=== PATIENT | male | born 1965 | race Hispanic/Latino ===

== ENCOUNTER 2017-09-02 10:25 | Inpatient (IN) | payer SELFPAY ==
[~2017-09-02] VITALS: Ht 165.1 cm; Wt 84.1 kg
[~2017-09-02 10:25] MED LIST: ASPIR 8181 MG PO; ATORVASTATIN CA40 MG PO; CILOSTAZOL50 MG PO; CYCLOBENZAPRINE5 MG PO; EFFIENT10 MG PO; GABAPENTIN600 MG PO; GLIMEPIRIDE2 MG PO; HYDROCODON-ACE1 EA11 PO; JENTADUETO 2.51 EAC2 PO; LASIX20 MG PO; METOPROLOL SUCC25 MG PO; POTASSIUM CHLO10 MEQ PO
--- NOTE | 2017-09-02 11:36 | Diagnostic Imaging Report ---
PROCEDURE:X-RAY LEFT FOOT, COMPLETE COMPARISON:None. INDICATIONS:HISTORY OF GANGRENE, LEFT FOOT PAIN FINDINGS: Status post amputation of the fourth ray at the level of the distal metatarsal shaft. No acute, displaced fracture or dislocation. Chronic appearing subluxations of the second and third metatarsophalangeal joints. No gross soft tissue defect or radiopaque foreign body no osseous destructive lesions.Atherosclerotic vascular calcifications. Degenerative plantar calcaneal spur. CONCLUSION: Status post partial fourth ray amputation as above. No cortical erosive change to suggest presence of osteomyelitis. If there is strong clinical concern, MRI of the left foot with and without contrast or 3 phase nuclear medicine bone scan may be obtained for further evaluation. Dictated by: Juan Gurrola M.D. on 09/02/2017 at 11:44 Electronically approved by: Juan Gurrola M.D. on 09/02/2017 at 11:44
[2017-09-02] MEDS ORDERED: SODIUM CHLORIDE 0.9% 1000ML 1,000 ML IV STA (13:07)
[2017-09-02 13:22] LABS: BASOPHILS # (AUTO) 0.1 (0.0-0.1); BASOPHILS % 0.6 % (0.0-1.0); EOSINOPHILS # (AUTO) 0.2 (0.0-0.4); EOSINOPHILS % 1.2 % (0.0-6.0); HEMATOCRIT 43.9 % (38.2-49.6); HEMOGLOBIN 14.8 g/dL (14.0-18.0); LYMPHOCYTES # (AUTO) 2.8 (1.0-3.2); MEAN CORPUSCULAR HGB CONC 33.7 g/dL (31-35); MONOCYTES # (AUTO) 0.9 (0.2-0.8); MONOCYTES % 6.8 % (4.4-11.3); NEUTROPHILS # (AUTO) 8.8 (2.1-6.9); PLATELET COUNT 383 x10e3/uL (140-360); RED BLOOD COUNT 4.93 x10e6/uL (4.3-5.7); RED CELL DISTRIBUTION WIDTH 12.2 % (11.7-14.4)
[2017-09-02 13:34] LABS: INR 0.95; PROTHROMBIN TIME 13.1 seconds (11.9-14.5)
[2017-09-02 13:45] LABS: ALANINE AMINOTRANSFERASE 8 IU/L (0-55); ALBUMIN 3.2 g/dL (3.5-5.0); ALBUMIN/GLOBULIN RATIO 0.6 (0.8-2.0); ALKALINE PHOSPHATASE 108 IU/L (40-150); ANION GAP 14.9 mmol/L (8-16); BLOOD UREA NITROGEN 19 mg/dL (7-26); BUN/CREATININE RATIO 18 (6-25); CALCIUM 9.7 mg/dL (8.4-10.2); CARBON DIOXIDE 25 mmol/L (22-29); CHLORIDE 101 mmol/L (98-107); CREATININE, SERUM 1.05 mg/dL (0.72-1.25); EST GLOMERULAR FILTRATION RATE > 60 ML/MIN (60-); GLUCOSE 201 mg/dL (74-118); POTASSIUM 4.9 mmol/L (3.5-5.1); SODIUM 136 mmol/L (136-145)
--- NOTE | 2017-09-02 14:08 | Diagnostic Imaging Report ---
PROCEDURE: A single AP view of the chest. COMPARISON: None. INDICATIONS: PRE OP. Foot surgery FINDINGS: Lines/tubes: None. Lungs: The lungs are well inflated and clear. There is no evidence of pneumonia or pulmonary edema. Pleura: There is no pleural effusion or pneumothorax. Heart and mediastinum: The heart and the mediastinum are unremarkable. Bones: No acute bony abnormality. IMPRESSION: No acute cardiopulmonary disease. Dictated by: Dashawn Chacon M.D. on 09/02/2017 at 14:16 Electronically approved by: Dashawn Chacon M.D. on 09/02/2017 at 14:16
[2017-09-02] MEDS ORDERED: HEPARIN 25,000U/0.45% NS 250ML 1,300 UNIT in SODIUM CHLORIDE 0.9% 250ML 0 ML IV SCH (15:00)
[2017-09-02] MEDS ORDERED: DEXTROSE 50% SYRINGE 50 ML IV PRN (15:00)
[2017-09-02] MEDS ORDERED: HEPARIN SOD (PORCINE) 5,000 UNIT/ML VIAL IV NR (15:30)
[2017-09-02] MEDS: VANCOMYCIN 1GM/NS 250 ML 250 ML IV SCH (15:59)
[2017-09-02] MEDS: SODIUM CHLORIDE 0.9% 1000ML 1,000 ML IV SCH ×2 (16:51→22:49)
[2017-09-02] MEDS: INSULIN REGULAR, HUMAN 100 UNIT/1 ML 3ML VIAL SQ SCH ×2 (16:51→21:00)
[2017-09-02] MEDS: PIPER-TAZ 3.375 GM 50 ML IV SCH (18:00)
[2017-09-02 18:58] VITALS: BP 169/97
[2017-09-02 19:35] VITALS: BP 169/97
[2017-09-02] MEDS ORDERED: ZESTRIL2.5 MG PO (20:01)
[2017-09-02] MEDS: ONDANSETRON HCL INJ 2 MG/ML VIAL IV PRN (20:41)
[2017-09-02] MEDS: MORPHINE SULFATE 2 MG/ML SYR IV PRN (20:41)
[2017-09-03] VITALS: BP 188/99
[2017-09-03] MEDS: MORPHINE SULFATE 2 MG/ML SYR IV PRN ×3 (01:34→18:35)
[2017-09-03] MEDS: ONDANSETRON HCL INJ 2 MG/ML VIAL IV PRN ×3 (01:35→18:35)
[2017-09-03] MEDS: VANCOMYCIN 1GM/NS 250 ML 250 ML IV SCH ×2 (03:45→16:39)
[2017-09-03 04:00] VITALS: BP 175/78
--- NOTE | 2017-09-03 04:24 | Consultation ---
DATE OF CONSULTATION: September 02, 2017 REASON FOR CONSULTATION: Gangrenous changes of left foot for several months now. HISTORY OF PRESENT ILLNESS: This is a 52-year-old male who was seen at bedside, who has a mha-iikxlvc-gumorrdqp diabetes for at least 25 years. He relates that he had some gangrenous changes approximately several months ago, has been working with gangrene and presented to the emergency room after his foot started getting significantly worse. He is currently denying any history of fever, chills, nausea or vomiting. PAST MEDICAL HISTORY: Remarkable for gpg-rjgwdlw-wzblzzhku diabetes and peripheral arterial disease. PAST SURGICAL HISTORY: Remarkable for stent placement to both lower extremities back in 2013, multiple amputations to both lower extremities including multiple toes. SOCIAL HISTORY: Smokes a half a pack a day for 2+ years. He got 2 years ago. Drinks socially. No recreational drug use. 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 FAMILY HISTORY: Remarkable for diabetes. CURRENT MEDICATIONS: Noted, include IV vancomycin and Zosyn. REVIEW OF SYSTEMS CARDIAC: Denies any palpitations or arrhythmias. RESPIRATORY: Denies any shortness of breath, productive cough. GASTROINTESTINAL: Denies any diarrhea or constipation. GENITOURINARY: Denies any problems with voiding. PHYSICAL EXAMINATION VITALS: Afebrile, pulse rate 86, respirations 14, blood pressure 168/90, and O2 saturation 99%. PODIATRIC PHYSICAL EXAMINATION VASCULAR: Pedal pulses in both the dorsalis pedis and posterior tibial arteries in both lower extremities are diminished. Skin temperature is warm to cool to touch. NEUROLOGICAL: Reveals complete loss of protective sensation when utilizing Elizabeth-Yony 5.07 monofilament wire. Muscle mass is symmetrical. Muscle strength is 3-4/5 to all muscle groups. DERMATOLOGICAL: Shows gangrenous changes to the lateral aspect of the right foot. Some foul smell present. LABS: White blood cell count of 12.71, hemoglobin 14.8, hematocrit 43.9, with a platelet count of 383,000. INR of 0.95. X-rays were negative for any gas in the tissue. ASSESSMENT: Gangrene with cellulitis with peripheral arterial disease. PLAN: Will start diluted wet to dry Betadine dressing. Patient will need a surgical amputation, will consist of possible transmetatarsal amputation with flap closure and I and D. Noninvasive arterial Doppler studies were ordered. Will continue to follow. Job#: [id number] GE
[2017-09-03] MEDS: PIPER-TAZ 3.375 GM 50 ML IV SCH ×4 (06:00→17:27)
[2017-09-03 07:17] LABS: ANION GAP 12.5 mmol/L (8-16); BLOOD UREA NITROGEN 13 mg/dL (7-26); BUN/CREATININE RATIO 14 (6-25); CARBON DIOXIDE 27 mmol/L (22-29); CHLORIDE 104 mmol/L (98-107); CHOL/HDL RATIO 7.1 (3.9-4.7); CHOLESTEROL 192 MD/DL (0-199); CREATININE, SERUM 0.94 mg/dL (0.72-1.25); EST GLOMERULAR FILTRATION RATE > 60 ML/MIN (60-); GLUCOSE 122 mg/dL (74-118); HDL CHOLESTEROL 27 MG/DL (40-60); LDL CHOLESTEROL 130 MG/DL (60-130); POTASSIUM 3.5 mmol/L (3.5-5.1); SODIUM 140 mmol/L (136-145); TRIGLYCERIDES 174 MG/DL (0-149)
[2017-09-03] MEDS: INSULIN REGULAR, HUMAN 100 UNIT/1 ML 3ML VIAL SQ SCH ×4 (07:30→21:00)
[2017-09-03 07:56] LABS: BASOPHILS # (AUTO) 0.1 (0.0-0.1); BASOPHILS % 0.6 % (0.0-1.0); EOSINOPHILS # (AUTO) 0.2 (0.0-0.4); EOSINOPHILS % 1.7 % (0.0-6.0); HEMOGLOBIN 13.6 g/dL (14.0-18.0); LYMPHOCYTES # (AUTO) 3.1 (1.0-3.2); LYMPHOCYTES % 31.8 % (18.0-39.1); MEAN CORPUSCULAR HGB CONC 33.2 g/dL (31-35); MEAN CORPUSCULAR VOLUME 90.3 fL (81-99); MONOCYTES # (AUTO) 0.6 (0.2-0.8); MONOCYTES % 6.1 % (4.4-11.3); NEUTROPHILS # (AUTO) 5.8 (2.1-6.9); NEUTROPHILS % 59.4 % (38.7-80.0); PLATELET COUNT 405 x10e3/uL (140-360); RED BLOOD COUNT 4.54 x10e6/uL (4.3-5.7); RED CELL DISTRIBUTION WIDTH 12.2 % (11.7-14.4)
[2017-09-03 08:00] VITALS: BP 180/99
[2017-09-03] MEDS: SODIUM CHLORIDE 0.9% 1000ML 1,000 ML IV SCH ×2 (08:00→14:49)
[2017-09-03] MEDS ORDERED: HEPARIN 25,000U/0.45% NS 250ML 250 ML IV SCH (09:30)
[2017-09-03 12:00] VITALS: BP 168/92
[2017-09-03 16:00] VITALS: BP 159/93
[2017-09-03] MEDS ORDERED: PROPOFOL IV EMULSION 10 MG/ML 20 ML VIAL ONE (17:01)
[2017-09-03] MEDS ORDERED: LIDOCAINE HCL 2% LOCAL INJ 5 ML SDV VIAL INJ ONE (17:01)
[2017-09-03] MEDS ORDERED: DEXAMETHASONE SOD PHOS INJ 4 MG/ML VIAL ONE (17:01)
[2017-09-03] MEDS ORDERED: SEVOFLURANE INHAL SOLN 250 ML PEN BTL ONE (17:01)
[2017-09-03] MEDS ORDERED: ONDANSETRON HCL INJ 2 MG/ML VIAL ONE (17:01)
[2017-09-03 18:43] LABS: INR 0.95; PROTHROMBIN TIME 13.1 seconds (11.9-14.5)
[2017-09-03 20:00] VITALS: BP 139/82
[2017-09-03] MEDS: HYDROCODONE/APAP 7.5MG-325MG 1 EA TAB PO PRN (21:38)
--- NOTE | 2017-09-03 23:30 | History and Physical ---
PCP: PRINTING MACHINIST: Dr. Srinath Peerz CHIEF COMPLAINT ON ADMISSION: Patient came into the emergency room with left leg pain. HISTORY OF PRESENTING ILLNESS: This is a 52-year-old male that comes into the emergency room complaining of left leg pain with fifth toe dry gangrene and second toe dry gangrene as well. The patient reported some neuropathy to left leg. Patient reports he has had previous amputation to the right great toe and as well as to the second right toe due to a fracture in the right great toe versus osteomyelitis several years ago in 2015. Patient reported he was seen in the emergency room about 3 weeks ago at [facility] and had a Doppler done of the left leg and was discharged from the emergency room. SOCIAL HISTORY: Patient reported he stopped smoking about 2 days ago. He used to smoke about 3/4 a pack for 2 years. Denies any alcohol, denies any recreational drugs. FAMILY HISTORY: Mom with anemia. Father with diabetes mellitus type 2 and of congestive heart failure. Has a sister with diabetes mellitus type 2 as well. PAST MEDICAL HISTORY: Diabetes mellitus type 2, hypertension, and peripheral vascular disease as well. REVIEW OF SYSTEMS: All systems negative and reviewed except in neurology reported neuropathy to left leg. Skin, has dry gangrene to the second and fifth left toes. PHYSICAL EXAMINATION: VITAL SIGNS: 97.6, pulse 74, blood pressure 175/78, respirations 18, satting 95% on room air. Weight 174. GENERAL: Patient is awake, alert, and oriented x3. LUNGS: Clear to auscultation bilaterally with normal respiratory effort. HEENT: Extraocular muscles are intact. Anicteric sclerae. ABDOMEN: Soft. Bowel sounds present. It is nontender, nondistended. CARDIOVASCULAR: Regular rate and rhythm. No murmurs appreciated. NECK: Supple. EXTREMITIES: Left foot wrapped with dressing that is clean, dry, and intact, but has a foul smell of gangrene. NEUROLOGICAL: Nonfocal. LABS: Sodium 140, potassium 3.5, chloride 104, CO2 27, BUN 13, creatinine 0.94, glucose 122. White count 9.76, hemoglobin 13.6, hematocrit 41, platelets 405,000. PT 13.1, PTT 53.0, INR 0.95. AST 7, total bili 0.4, alkaline phos 108, ALT 8. DIAGNOSES: 1. Left leg fifth toe with dry gangrene, left second toe with dry gangrene. 2. Neuropathy. 3. Diabetes mellitus type 2. 4. Hypertension. 5. Peripheral vascular disease. PLAN: 1. Patient is to have incision and drainage of the left foot metatarsal by Dr. Perez. Will go ahead and stop the heparin drip for now due to surgical procedure tomorrow. 2. Will place patient on a sliding scale. 3. Will continue IV antibiotics of vancomycin as well as Zosyn. 4. Will continue with pain medication. Dictated by Luis Daniel Brantley NP Job#: [id number]
[2017-09-04] VITALS: BP 164/81
[2017-09-04] MEDS: SODIUM CHLORIDE 0.9% 1000ML 1,000 ML IV SCH ×4 (00:45→21:53)
[2017-09-04] MEDS: PIPER-TAZ 3.375 GM 50 ML IV SCH ×4 (00:45→17:44)
[2017-09-04] MEDS: HYDROCODONE/APAP 7.5MG-325MG 1 EA TAB PO PRN ×3 (01:38→20:20)
[2017-09-04 02:33] VITALS: BP 164/81
[2017-09-04 04:00] VITALS: BP 157/74
[2017-09-04] MEDS: VANCOMYCIN 1GM/NS 250 ML 250 ML IV SCH ×2 (04:50→16:11)
[2017-09-04 07:08] LABS: BASOPHILS # (AUTO) 0.1 (0.0-0.1); BASOPHILS % 0.6 % (0.0-1.0); EOSINOPHILS # (AUTO) 0.2 (0.0-0.4); EOSINOPHILS % 2.4 % (0.0-6.0); HEMATOCRIT 37.3 % (38.2-49.6); HEMOGLOBIN 12.6 g/dL (14.0-18.0); LYMPHOCYTES # (AUTO) 2.4 (1.0-3.2); LYMPHOCYTES % 24.2 % (18.0-39.1); MEAN CORPUSCULAR HEMOGLOBIN 30.2 pg (28-32); MEAN CORPUSCULAR HGB CONC 33.8 g/dL (31-35); MEAN CORPUSCULAR VOLUME 89.4 fL (81-99); MONOCYTES # (AUTO) 0.8 (0.2-0.8); MONOCYTES % 8.1 % (4.4-11.3); NEUTROPHILS # (AUTO) 6.5 (2.1-6.9); NEUTROPHILS % 64.4 % (38.7-80.0); PLATELET COUNT 345 x10e3/uL (140-360); RED BLOOD COUNT 4.17 x10e6/uL (4.3-5.7); RED CELL DISTRIBUTION WIDTH 12.2 % (11.7-14.4)
[2017-09-04 07:25] LABS: PROTHROMBIN TIME 13.7 seconds (11.9-14.5)
[2017-09-04 07:26] LABS: PARTIAL THROMBOPLASTIN TIME 31.5 seconds (23.8-35.5)
[2017-09-04] MEDS: INSULIN REGULAR, HUMAN 100 UNIT/1 ML 3ML VIAL SQ SCH ×4 (07:30→20:50)
[2017-09-04] MEDS ORDERED: BUPIVACAINE HCL 0.5% INJ 30 ML VIAL INJ ONE (07:34)
[2017-09-04] MEDS ORDERED: BETAMETHASONE DISODIUM PHOS 6 MG/ML VIAL ONE (07:34)
[2017-09-04] MEDS ORDERED: BACITRACIN 50,000 UNIT VIAL ONE (07:34)
[2017-09-04] MEDS ORDERED: HYDROCODONE/APAP 5MG-325MG TAB PO PRN (09:45)
[2017-09-04] MEDS ORDERED: HYDRALAZINE HCL 20 MG/ML VIAL IV PRN (09:45)
--- NOTE | 2017-09-04 11:02 | Operative Report ---
DATE OF PROCEDURE: September 04, 2017 PREOPERATIVE DIAGNOSES 1. Abscess, left foot. 2. Gangrene, left foot. POSTOPERATIVE DIAGNOSES 1. Abscess, left foot. 2. Gangrene, left foot. OPERATIVE PROCEDURE 1. I and D of abscess, left foot. 2. Transmetatarsal amputation, left foot. 3. Rotational flap closure, left foot. ANESTHESIA: General. HEMOSTASIS: Pneumatic calf tourniquet at 250 mm Hg. PROCEDURE IN DETAIL: Patient was taken into the operating room, placed on the operating table in the supine position. Following induction of general anesthesia, Webril wraps were placed on the patient's left calf, followed by application of left calf tourniquet. The left lower extremity was then prepped and draped in the usual aseptic manner and the following procedures then performed. Procedure #1, I and D, left foot: Attention was directed to the dorsal lateral aspect of the 5th metatarsal tuberosity, where a curvilinear incision was performed. Purulent drainage was encountered. At this point, secondary to the severe infection, a racquet-shaped incision was performed overlying the metatarsal parabola, performing a transmetatarsal amputation. The viable tissue was then resected free from metatarsals 1 through 5, preserving the metatarsal parabola, utilizing an oscillating saw. The forefoot was then disarticulated and sent for pathological analysis. All areas were then copiously flushed with sterile antibiotic solution and suctioned. At this point, the calf tourniquet was released and some minimal bleeding was encountered. Areas were then copiously flushed with sterile antibiotic solution. The plantar flap was then rotated dorsolaterally and remodeled to allow for closure with minimal skin tension, utilizing 3-0 Vicryl for subcutaneous tissue and 3-0 nylon for the skin. Approximately 15-20 mL of 0.5% plain Marcaine were then used to achieve local anesthesia of the above-mentioned surgical area. Sterile dressing was applied and patient was then transferred from the OR to recovery room with vital signs stable. Patient will remain in the hospital getting IV antibiotics. Vascular consultation will be obtained to see if patient could have any more blood flow going to his left lower extremity. Patient understands that no warranties or guarantees were given. If not responsive, may need a more proximal amputation, which may include a drnte-eav-luyi amputation. Job#: [id number] IL
--- NOTE | 2017-09-04 11:04 | Diagnostic Imaging Report ---
PROCEDURE:X-RAY LEFT FOOT, TWO VIEWS COMPARISON:Left foot x-rays 09/02/17. INDICATIONS:FOOT AMPUTATION FINDINGS: The forefoot has been amputated at the proximal metatarsals. There is periosteal new bone formation surrounding the base of the fourth metatarsal. The osteotomy margin is sharp, however. The osteotomy margins of digits 1, 2, 3, and 5 are sharp without evidence of osteopenia. Degenerative changes of the midfoot at the third metatarsal are stable. There is no evidence of midfoot fracture. Prominent calcaneal enthesophyte is stable. The hindfoot is intact. There is no evidence of gas in the soft tissues. Arterial calcifications are stable. CONCLUSION: Status post forefoot amputation with periosteal new bone formation surrounding the proximal phalanx of the fourth metatarsal. This could be the result of a healing fracture or osteomyelitis. Correlation with clinical exam findings is recommended. Dictated by: Oirn Colvin M.D. on 09/04/2017 at 11:12 Electronically approved by: Orin Colvin M.D. on 09/04/2017 at 11:12
[2017-09-04 12:00] VITALS: BP 148/84
[2017-09-04] MEDS: CYCLOBENZAPRINE HCL 10 MG TAB PO SCH ×2 (15:00→21:00)
[2017-09-04] MEDS ORDERED: NON-FORMULARY MEDICATION (Cyclobenzaprine Hcl (Flexeril) 5 MG) PO SCH (15:00)
[2017-09-04 16:00] VITALS: BP 126/75
[2017-09-04] MEDS: GLIMEPIRIDE 2 MG TAB PO SCH (16:28)
[2017-09-04] MEDS: CILOSTAZOL 100 MG TAB PO SCH (16:29)
[2017-09-04] MEDS: GABAPENTIN 300 MG CAP PO SCH (16:29)
[2017-09-04] MEDS ORDERED: NON-FORMULARY MEDICATION (Gabapentin 600 MG) PO SCH (17:00)
[2017-09-04] MEDS ORDERED: MIDAZOLAM HCL 2 MG/2 ML VIAL ONE (18:32)
[2017-09-04] MEDS ORDERED: FENTANYL CITRATE/PF 100MCG/2 ML INJ ONE (18:32)
--- NOTE | 2017-09-04 19:36 | Consultation ---
DATE OF CONSULTATION: September 04, 2017 REQUESTING PHYSICIAN: Dr. David Jovel. REASON FOR CONSULTATION: Peripheral arterial disease. HISTORY OF PRESENT ILLNESS: This is a 52-year-old male with history of diabetes mellitus, hyperlipidemia and peripheral arterial disease, status post lower extremity stents bilaterally who presented with gangrene of the left 2nd and 5th toes. He was admitted for further evaluation and underwent I\T\D of the left foot abscess as well as transmetatarsal amputation today. Cardiology is consulted for management of the patient's peripheral arterial disease. The patient denies chest pain, shortness of breath, palpitations, edema, orthopnea, PND, lightheadedness or syncope. REVIEW OF SYSTEMS: Negative except as per HPI. PAST MEDICAL HISTORY: 1. Diabetes mellitus. 2. Hypertension. 3. Peripheral arterial disease, status post lower extremity stents bilaterally. PAST SURGICAL HISTORY: 1. Toe amputation on the right. 2. Cataract surgery. ALLERGIES: NO KNOWN DRUG ALLERGIES. MEDICATIONS: Please see medication list. SOCIAL HISTORY: He smokes approximately 3/4 of a pack a day for 7 years. He drinks alcohol occasionally. Denies illicit drugs. FAMILY HISTORY: Pertinent for father with congestive heart failure. PHYSICAL EXAMINATION VITAL SIGNS: Temperature 98.2 degrees, pulse 89, respiratory rate 18, blood pressure 148/84, oxygen saturation 99% on room air. GENERAL: Awake, alert, well-nourished, well-developed man in no acute distress. HEENT: Normocephalic, atraumatic. Pupils are equal. No scleral icterus. NECK: Supple. No thyromegaly or cervical lymphadenopathy. No carotid bruits. LUNGS: Clear to auscultation bilaterally. No wheezes or crackles. CARDIOVASCULAR: Normal rate, regular rhythm. No murmurs. Normal S1 and S2. ABDOMEN: Soft and nontender. EXTREMITIES: No edema. The left foot with surgical dressing intact. NEUROLOGIC: Nonfocal exam. CARDIAC MEDICATIONS: 1. 50 mg p.o. b.i.d. 2. Atorvastatin 40 mg p.o. nightly. 3. 10 mg p.o. daily. 4. Metoprolol succinate 25 mg p.o. daily. 5. Lisinopril 2.5 mg p.o. daily. 6. Furosemide 20 mg p.o. daily. 7. Aspirin 81 mg p.o. daily. LABORATORY DATA: WBC 10.04, hemoglobin 12.6, hematocrit 37.3, platelets 345,000. Bilateral lower extremity Doppler with monophasic waveforms in the distal right popliteal, anterior tibial and dorsalis pedis arteries suggestive of infrapopliteal peripheral arterial disease. Monophasic waveforms in the left femoral popliteal, posterior tibial, anterior tibial and dorsalis pedis arteries suggest the presence of hemodynamically significant stenosis proximally. IMPRESSION 1. Peripheral arterial disease suggested by noninvasive Doppler evaluation, left worse than right, left foot. 2. Abscess, status post transmetatarsal amputation. 3. Diabetes mellitus. 4. Hyperlipidemia. RECOMMENDATIONS: Make the patient n.p.o. after midnight. Plan for peripheral angiogram in the morning. IV antibiotics per primary service. The patient was counseled on smoking cessation. Thank you for this consult. We will continue to follow. Job#: [id number]
[2017-09-04 20:10] VITALS: BP 119/58
[2017-09-04] MEDS: ATORVASTATIN 40 MG TAB PO SCH (20:49)
[2017-09-05] VITALS (9 sets, daily range): BP systolic 102–171; BP diastolic 56–84
[2017-09-05] MEDS: PIPER-TAZ 3.375 GM 50 ML IV SCH ×4 (00:48→17:00)
[2017-09-05] MEDS: HYDROCODONE/APAP 7.5MG-325MG 1 EA TAB PO PRN ×4 (03:06→23:00)
[2017-09-05] MEDS: VANCOMYCIN 1GM/NS 250 ML 250 ML IV SCH ×2 (04:44→18:07)
[2017-09-05 07:14] LABS: BASOPHILS # (AUTO) 0.1 (0.0-0.1); BASOPHILS % 0.6 % (0.0-1.0); EOSINOPHILS # (AUTO) 0.1 (0.0-0.4); EOSINOPHILS % 1.4 % (0.0-6.0); HEMATOCRIT 37.6 % (38.2-49.6); HEMOGLOBIN 12.5 g/dL (14.0-18.0); LYMPHOCYTES # (AUTO) 2.4 (1.0-3.2); LYMPHOCYTES % 27.4 % (18.0-39.1); MEAN CORPUSCULAR HEMOGLOBIN 29.9 pg (28-32); MEAN CORPUSCULAR HGB CONC 33.2 g/dL (31-35); MONOCYTES # (AUTO) 0.6 (0.2-0.8); MONOCYTES % 7.3 % (4.4-11.3); NEUTROPHILS # (AUTO) 5.5 (2.1-6.9); NEUTROPHILS % 62.8 % (38.7-80.0); PLATELET COUNT 348 x10e3/uL (140-360); RED BLOOD COUNT 4.18 x10e6/uL (4.3-5.7); RED CELL DISTRIBUTION WIDTH 12.2 % (11.7-14.4)
[2017-09-05] MEDS: INSULIN REGULAR, HUMAN 100 UNIT/1 ML 3ML VIAL SQ SCH ×4 (07:30→21:00)
[2017-09-05 07:35] LABS: ANION GAP 15.6 mmol/L (8-16); BLOOD UREA NITROGEN 13 mg/dL (7-26); BUN/CREATININE RATIO 14 (6-25); CALCIUM 8.8 mg/dL (8.4-10.2); CARBON DIOXIDE 23 mmol/L (22-29); CHLORIDE 106 mmol/L (98-107); EST GLOMERULAR FILTRATION RATE > 60 ML/MIN (60-); GLUCOSE 107 mg/dL (74-118); POTASSIUM 3.6 mmol/L (3.5-5.1); SODIUM 141 mmol/L (136-145)
[2017-09-05] MEDS: GLIMEPIRIDE 2 MG TAB PO SCH ×2 (08:47→16:25)
[2017-09-05] MEDS: CYCLOBENZAPRINE HCL 10 MG TAB PO SCH ×4 (08:47→21:00)
[2017-09-05] MEDS: GABAPENTIN 300 MG CAP PO SCH ×2 (08:48→16:25)
[2017-09-05] MEDS: CILOSTAZOL 100 MG TAB PO SCH ×2 (08:48→16:25)
[2017-09-05] MEDS ORDERED: NON-FORMULARY MEDICATION (Atorvastatin Calcium 40 MG) PO SCH (09:00)
[2017-09-05] MEDS: ASPIRIN 81 MG CHEW TAB PO SCH (09:00)
[2017-09-05] MEDS ORDERED: LIDOCAINE HCL 2% LOCAL 20 ML VIAL ONE (09:39)
[2017-09-05] MEDS ORDERED: HEPARIN SOD/SOD CHLORIDE 2,000 ML ONE (09:40)
[2017-09-05] MEDS ORDERED: IOPAMIDOL 370 MG/ML 200 ML INFUS..BTL INJ ONE (09:40)
--- NOTE | 2017-09-05 09:45 | Progress Note ---
DATE: September 05, 2017 SUBJECTIVE: Patient was seen at bedside. Doing well. Decreased pain to the left lower extremity. Denies history of fever, chills, nausea, or vomiting. OBJECTIVE VITAL SIGNS: Afebrile. Vital signs stable. EXTREMITIES: Dressing dry and intact. No bloody strikethrough. ASSESSMENT: Status post one day left foot surgery/incision and drainage of transmetatarsal amputation and flap closure with minimal bleeding. PLAN: Patient is waiting to have an arteriogram done for possible angioplasty, stenting or bypassing. Patient informed of intraoperative findings. Minimal bleeding was encountered. Patient will need better circulation for flap to heal. Job#: [id number] BROCK
[2017-09-05] MEDS ORDERED: IOPAMIDOL 300MG/ML 100 ML INFUS..BTL IV ONE (09:49)
[2017-09-05] MEDS: SODIUM CHLORIDE 0.9% 1000ML 1,000 ML IV SCH ×2 (11:20→14:12)
[2017-09-05] MEDS ORDERED: ASPIRIN 325 MG TAB ONE (15:35)
[2017-09-05] MEDS ORDERED: PRASUGREL 10 MG TAB ONE (15:35)
[2017-09-05] MEDS ORDERED: HYDRALAZINE HCL 20 MG/ML VIAL ONE (15:39)
[2017-09-05] MEDS: POTASSIUM CHLORIDE 10 MEQ TABCR PO SCH (16:23)
[2017-09-05] MEDS: PRASUGREL 10 MG TAB PO SCH (16:23)
[2017-09-05] MEDS: FUROSEMIDE 20 MG TAB PO SCH (16:23)
[2017-09-05] MEDS: LISINOPRIL 2.5 MG TAB PO SCH (16:23)
[2017-09-05] MEDS: METOPROLOL SUCCINATE 25 MG TAB XL PO SCH (16:24)
[2017-09-05] MEDS: ATORVASTATIN 40 MG TAB PO SCH (21:00)
[2017-09-06] VITALS (7 sets, daily range): BP systolic 93–153; BP diastolic 58–87
[2017-09-06] MEDS: VANCOMYCIN 1GM/NS 250 ML 250 ML IV SCH ×2 (04:00→18:15)
[2017-09-06] MEDS: HYDROCODONE/APAP 7.5MG-325MG 1 EA TAB PO PRN ×5 (05:02→21:58)
[2017-09-06] MEDS: PIPER-TAZ 3.375 GM 50 ML IV SCH ×4 (06:00→17:32)
--- NOTE | 2017-09-06 06:42 | Progress Note ---
DATE: September 05, 2017 CARDIOLOGY PROGRESS NOTE SUBJECTIVE: Underwent a left popliteal drug-coated balloon CLIENT ADVISOR with judaism of popliteal flow down to the foot. Has poor outflow due to small vessel disease. Denies any active complaints. OBJECTIVE VITALS: Temperature 96.1, heart rate 89, respiratory rate 18, blood pressure 171/84, and O2 sat 100%. GENERAL: No acute distress. Alert. NECK: No JVD. CHEST: Clear to auscultation. CARDIOVASCULAR: Regular rate and rhythm. Normal S1 and S2. No S3 or S4. ABDOMEN: Soft. EXTREMITIES: No edema. Left foot with surgical dressing in place. CARDIOVASCULAR MEDICATIONS 1. Aspirin 81 mg daily. 2. Effient 10 mg daily, status post 60 mg load after revascularization today. 3. Atorvastatin 40 mg at bedtime. 4. 30 mg b.i.d. 5. Metoprolol succinate 25 mg daily. 6. Lisinopril 2.5 mg daily. 7. Furosemide 20 mg daily. 8. Hydralazine 10 mg q.4 h. p.r.n. STUDIES: White blood cells 8.7, hemoglobin 12.5 and platelets 348,000. Creatinine 0.9. ASSESSMENT 1. Peripheral arterial disease with critical limb ischemia: Status post left superficial femoral artery and right popliteal drug-eluting balloon percutaneous transluminal angioplasty for occlusion of prior stent with poor residual outflow at small vessel level. 2. Abscess: Status post transmetatarsal amputation and drainage. 3. Diabetes mellitus. 4. Dyslipidemia. RECOMMENDATIONS 1. Continue antiplatelet therapy. 2. Continue wound care and IV antibiotics. 3. DVT prophylaxis advised starting tomorrow if no bleeding occurs. 4. Antibiotics per primary service. 5. Diabetes care. 6. Further recommendations to follow. Job#: [id number] ID
[2017-09-06] MEDS: INSULIN REGULAR, HUMAN 100 UNIT/1 ML 3ML VIAL SQ SCH ×4 (07:30→20:22)
[2017-09-06] MEDS: FUROSEMIDE 20 MG TAB PO SCH (08:23)
[2017-09-06] MEDS: LISINOPRIL 2.5 MG TAB PO SCH (08:23)
[2017-09-06] MEDS: GABAPENTIN 300 MG CAP PO SCH ×2 (08:23→17:32)
[2017-09-06] MEDS: ASPIRIN 81 MG CHEW TAB PO SCH (08:23)
[2017-09-06] MEDS: CILOSTAZOL 100 MG TAB PO SCH ×2 (08:23→17:32)
[2017-09-06] MEDS: PRASUGREL 10 MG TAB PO SCH (08:23)
[2017-09-06] MEDS: CYCLOBENZAPRINE HCL 10 MG TAB PO SCH ×3 (08:23→20:22)
[2017-09-06] MEDS: POTASSIUM CHLORIDE 10 MEQ TABCR PO SCH (08:23)
[2017-09-06] MEDS: GLIMEPIRIDE 2 MG TAB PO SCH ×2 (08:23→17:32)
[2017-09-06] MEDS: METOPROLOL SUCCINATE 25 MG TAB XL PO SCH (08:24)
[2017-09-06 08:27] LABS: BASOPHILS # (AUTO) 0.1 (0.0-0.1); BASOPHILS % 0.7 % (0.0-1.0); EOSINOPHILS # (AUTO) 0.1 (0.0-0.4); EOSINOPHILS % 0.9 % (0.0-6.0); HEMATOCRIT 35.6 % (38.2-49.6); HEMOGLOBIN 11.6 g/dL (14.0-18.0); LYMPHOCYTES # (AUTO) 2.1 (1.0-3.2); LYMPHOCYTES % 19.8 % (18.0-39.1); MEAN CORPUSCULAR HEMOGLOBIN 29.3 pg (28-32); MEAN CORPUSCULAR HGB CONC 32.6 g/dL (31-35); MEAN CORPUSCULAR VOLUME 89.9 fL (81-99); MONOCYTES # (AUTO) 0.9 (0.2-0.8); NEUTROPHILS # (AUTO) 7.2 (2.1-6.9); NEUTROPHILS % 69.3 % (38.7-80.0); PLATELET COUNT 352 x10e3/uL (140-360); RED BLOOD COUNT 3.96 x10e6/uL (4.3-5.7); RED CELL DISTRIBUTION WIDTH 12.4 % (11.7-14.4)
[2017-09-06 08:59] LABS: ANION GAP 13.9 mmol/L (8-16); BLOOD UREA NITROGEN 11 mg/dL (7-26); BUN/CREATININE RATIO 11 (6-25); CALCIUM 8.8 mg/dL (8.4-10.2); CARBON DIOXIDE 24 mmol/L (22-29); CHLORIDE 104 mmol/L (98-107); CREATININE, SERUM 0.97 mg/dL (0.72-1.25); EST GLOMERULAR FILTRATION RATE > 60 ML/MIN (60-); GLUCOSE 126 mg/dL (74-118); POTASSIUM 3.9 mmol/L (3.5-5.1); SODIUM 138 mmol/L (136-145)
--- NOTE | 2017-09-06 10:01 | Operative Report ---
DATE OF PROCEDURE: September 05, 2017 REFERRING PHYSICIAN: Dr. David Jovel. PROCEDURES PERFORMED 1. Abdominal aortogram with runoff to the right lower extremity. 2. Selective lower extremity angiography to the left lower extremity. 3. Third-order catheter placement from right common femoral artery to left common femoral artery for additional angiography. 4. Additional third-order catheter placement from right common femoral artery to left popliteal artery for additional selective angiography [id number] vessels initially not well visualized. 5. Drug-eluting balloon CHANNEL PROCESS PLANT OPERATOR of the distal left SFA and proximal to mid left popliteal artery in the area of previously occluded stents. 6. Right common femoral artery 6-Croatian Angio-Seal closure. PROCEDURE COMPLICATIONS: None. ESTIMATED BLOOD LOSS: Less than 15 mL. PROCEDURE SUMMARY: This procedure was performed for critical limb ischemia, limb salvage. Access was obtained to the right femoral artery with a 6-Croatian sheath. An Omni Flush catheter was positioned through the abdominal aorta for aortogram with runoff. Selective lower extremity angiography of the left lower extremity was then performed after sheath placement to the left common femoral artery. An Advantage wire was used across the area of stenosis with J loop at the tip and advanced carefully with Seeker catheter. The wire was then retrieved and angiography via the left popliteal artery was performed confirming anatomy of the left lower extremity. It was decided to proceed with intervention of left distal femoral artery to proximal left popliteal in-stent occlusion 100% with 3.5 x 100 Ultraverse balloon after wire exchange to KellBenxm wire with fixed position to the left anterior tibial artery, exchanged over the Seeker catheter. Inflation to 8 atmospheres serially across the target lesion was followed by drug-eluting balloon angioplasty with Lutonix 4.0 x 150 drug-eluting balloon to treat the mid to distal portion of the stent and the partial to mid left popliteal artery in the areas of stenosis, and an additional 5.0 x 160 Lutonix drug-eluting balloon to treat the area proximal to the stent in the left SFA and across the area of the stent. Balloon inflations with Lutonix balloons were to 12 atmospheres and over 2 minutes each. Final angiography revealed less than 10% residual stenosis across the treated area, JULIO III flow. No flow limiting dissections, however, and small non-flow limiting dissection noted in the mid left popliteal artery, and so we decided to leave with no additional therapy even if location in the popliteal level and lack of flow limitation. Discussion with the patient about consideration of stent issues occurred down the line in this area were discussed post procedure. There is 3-vessel runoff down to the left lower extremity. However, the vessels overall are diffusely diseased throughout, mainly the TP trunk, peroneal and posterior tibial arteries as well as severe diabetic small foot disease and poor outflow noted to the left foot. This was also discussed with the patient. Overall, great angiographic results. ANGIOGRAPHIC FINDINGS: The distal descending abdominal aorta has luminal irregularities and the right common iliac artery has patent stent, which was noted to be unchanged in position or structure at the end of the procedure. The rest of the iliac arteries, profunda femoris, common femoral arteries and luminal irregularities, the right SFA and popliteal arteries have less than 30% stenosis. There is a patent right anterior tibial with 70% distal stenosis, which is focal, and there is diffuse, at least 60% to 70% disease of the right TP trunk, right peroneal artery and right posterior tibial artery throughout with small vessel disease at the foot level of both lower extremities. The left SFA has, in the distal segment, stent with 70% stenosis in the proximal misael-stent area, 95% stenosis in the proximal to mid stent area [id number]% occlusion of the distal stent area and with 60% to 70% stenosis of the proximal to mid popliteal artery with distal filling the collaterals. The left anterior tibial is 60% diseased in the proximal segment. The TP trunk is diffusely diseased 50% and peroneal and posterior tibial arteries have diffuse 60% to 70% disease and overall are small in caliber throughout with poor outflow and small vessel disease at the foot level. CONCLUSION: Successful revascularization with drug-eluting balloon of the left distal superficial femoral artery and proximal to mid popliteal artery in the area of prior stent occlusion, follow residual [id number]-[id number] dissection in the left popliteal artery. RECOMMENDATIONS: Aspirin 81 mg daily, Effient 10 mg daily. Continue aggressive wound care. antibiotics and management of peripheral arterial disease for limb salvage. Overall, guarded foot prognosis. Job#: [id number]
--- NOTE | 2017-09-06 11:36 | Progress Note ---
DATE: September 06, 2017 CARDIOLOGY PROGRESS NOTE: SUBJECTIVE: Mr. Rebollar is status post intervention on his left lower extremity with angioplasty of the left femoral artery. OBJECTIVE VITAL SIGNS: Afebrile. Heart rate is 85. Blood pressure 145/73. CARDIOVASCULAR: Regular rhythm. No murmurs or gallops. LUNGS: Clear to auscultation bilaterally. ABDOMEN: Soft. RIGHT GROIN: Is without hematoma. ASSESSMENT: Peripheral arterial disease with critical limb ischemia status post intervention. PLAN: Dual antiplatelet therapy. Continue local wound care as well as IV antibiotics. The patient has severe infrapopliteal disease that is not amenable to intervention. Job#: [id number] EV
[2017-09-06] MEDS: ENOXAPARIN SOD INJ 40 MG/0.4 ML SYR SC SCH (17:32)
[2017-09-06] MEDS: ATORVASTATIN 40 MG TAB PO SCH (20:22)
[2017-09-07] VITALS (9 sets, daily range): BP systolic 104–143; BP diastolic 66–69
[2017-09-07] MEDS: PIPER-TAZ 3.375 GM 50 ML IV SCH ×5 (00:06→23:24)
[2017-09-07] MEDS: VANCOMYCIN 1GM/NS 250 ML 250 ML IV SCH ×2 (03:28→16:15)
[2017-09-07] MEDS: HYDROCODONE/APAP 7.5MG-325MG 1 EA TAB PO PRN ×4 (03:28→22:19)
[2017-09-07] MEDS: INSULIN REGULAR, HUMAN 100 UNIT/1 ML 3ML VIAL SQ SCH ×4 (07:30→21:00)
[2017-09-07] MEDS: CYCLOBENZAPRINE HCL 10 MG TAB PO SCH ×3 (08:28→20:56)
[2017-09-07] MEDS: LISINOPRIL 2.5 MG TAB PO SCH (08:28)
[2017-09-07] MEDS: CILOSTAZOL 100 MG TAB PO SCH ×2 (08:28→16:19)
[2017-09-07] MEDS: GLIMEPIRIDE 2 MG TAB PO SCH ×2 (08:28→16:19)
[2017-09-07] MEDS: GABAPENTIN 300 MG CAP PO SCH ×2 (08:28→16:19)
[2017-09-07] MEDS: ASPIRIN 81 MG CHEW TAB PO SCH (08:28)
[2017-09-07] MEDS: FUROSEMIDE 20 MG TAB PO SCH (08:28)
[2017-09-07] MEDS: PRASUGREL 10 MG TAB PO SCH (08:28)
[2017-09-07] MEDS: METOPROLOL SUCCINATE 25 MG TAB XL PO SCH (08:28)
[2017-09-07] MEDS: POTASSIUM CHLORIDE 10 MEQ TABCR PO SCH (08:28)
[2017-09-07 08:36] LABS: BASOPHILS # (AUTO) 0.1 (0.0-0.1); BASOPHILS % 0.8 % (0.0-1.0); EOSINOPHILS # (AUTO) 0.3 (0.0-0.4); EOSINOPHILS % 2.7 % (0.0-6.0); HEMOGLOBIN 12.4 g/dL (14.0-18.0); LYMPHOCYTES # (AUTO) 2.5 (1.0-3.2); LYMPHOCYTES % 24.6 % (18.0-39.1); MEAN CORPUSCULAR HEMOGLOBIN 29.9 pg (28-32); MEAN CORPUSCULAR HGB CONC 32.6 g/dL (31-35); MEAN CORPUSCULAR VOLUME 91.6 fL (81-99); MONOCYTES # (AUTO) 0.8 (0.2-0.8); MONOCYTES % 8.1 % (4.4-11.3); NEUTROPHILS # (AUTO) 6.4 (2.1-6.9); NEUTROPHILS % 63.4 % (38.7-80.0); PLATELET COUNT 378 x10e3/uL (140-360); RED BLOOD COUNT 4.15 x10e6/uL (4.3-5.7); RED CELL DISTRIBUTION WIDTH 12.5 % (11.7-14.4)
[2017-09-07 11:07] LABS: ANION GAP 16.4 mmol/L (8-16); CREATININE, SERUM 1.27 mg/dL (0.72-1.25); POTASSIUM 4.4 mmol/L (3.5-5.1)
--- NOTE | 2017-09-07 12:24 | Progress Note ---
DATE: September 07, 2017 CARDIOLOGY PROGRESS NOTE Mr. Rebollar remains asymptomatic beside some surgical pain. PHYSICAL EXAMINATION VITAL SIGNS: Afebrile. Heart rate 91, blood pressure 143/68. CARDIOVASCULAR: Regular rhythm. Systolic murmur. LUNGS: Clear to auscultation bilaterally. MEDICATIONS: Reviewed. The patient remains on dual-antiplatelet therapy along with cilostazol. ASSESSMENT: Peripheral arterial disease with critical limb ischemia, status post intervention on the left femoral artery. RECOMMENDATIONS: Continue dual-antiplatelet therapy. The patient remains at risk for poor healing due to severe infrapopliteal disease that is not amenable to intervention. At this point, aggressive medical therapy including wound care. Job#: [id number] VAS
--- NOTE | 2017-09-07 14:58 | Progress Note ---
DATE: September 07, 2017 SUBJECTIVE: Patient seen at bedside. Doing well. Denies any history of fever, chills, nausea or vomiting. OBJECTIVE: Vitals: Afebrile. Vital signs stable. Flap and incision look good. Skin temperature warm to touch. No evidence of any type of surgical dehiscence. ASSESSMENT: Status post transmetatarsal amputation incision and drainage with flap closure with angioplasty to the femoral artery with severe infrapopliteal artery disease. PLAN: Will continue as per Dr. Hopkins. Continue antibiotics. Continue local wound care. Continue offloading. Will continue until the foot demarcates, so far looking okay. Job#: [id number]
[2017-09-07] MEDS: ENOXAPARIN SOD INJ 40 MG/0.4 ML SYR SC SCH (16:19)
[2017-09-07] MEDS: ATORVASTATIN 40 MG TAB PO SCH (20:54)
[2017-09-08 00:16] VITALS: BP 113/64
[2017-09-08 03:50] LABS: BASOPHILS # (AUTO) 0.1 (0.0-0.1); BASOPHILS % 0.9 % (0.0-1.0); EOSINOPHILS # (AUTO) 0.5 (0.0-0.4); EOSINOPHILS % 5.4 % (0.0-6.0); HEMATOCRIT 35.1 % (38.2-49.6); HEMOGLOBIN 11.6 g/dL (14.0-18.0); LYMPHOCYTES # (AUTO) 2.9 (1.0-3.2); LYMPHOCYTES % 33.3 % (18.0-39.1); MEAN CORPUSCULAR HEMOGLOBIN 29.8 pg (28-32); MEAN CORPUSCULAR VOLUME 90.2 fL (81-99); MONOCYTES # (AUTO) 0.7 (0.2-0.8); MONOCYTES % 8.4 % (4.4-11.3); NEUTROPHILS # (AUTO) 4.5 (2.1-6.9); NEUTROPHILS % 51.4 % (38.7-80.0); PLATELET COUNT 334 x10e3/uL (140-360); RED BLOOD COUNT 3.89 x10e6/uL (4.3-5.7); RED CELL DISTRIBUTION WIDTH 12.7 % (11.7-14.4)
[2017-09-08] MEDS: VANCOMYCIN 1GM/NS 250 ML 250 ML IV SCH ×2 (04:00→17:00)
[2017-09-08 04:04] LABS: ANION GAP 11.8 mmol/L (8-16); BLOOD UREA NITROGEN 13 mg/dL (7-26); BUN/CREATININE RATIO 12 (6-25); CALCIUM 9.2 mg/dL (8.4-10.2); CARBON DIOXIDE 27 mmol/L (22-29); CHLORIDE 102 mmol/L (98-107); CREATININE, SERUM 1.11 mg/dL (0.72-1.25); EST GLOMERULAR FILTRATION RATE > 60 ML/MIN (60-); GLUCOSE 73 mg/dL (74-118); POTASSIUM 3.8 mmol/L (3.5-5.1); SODIUM 137 mmol/L (136-145)
[2017-09-08 05:45] VITALS: BP 146/89
[2017-09-08] MEDS: PIPER-TAZ 3.375 GM 50 ML IV SCH ×3 (06:09→17:41)
[2017-09-08] MEDS: HYDROCODONE/APAP 7.5MG-325MG 1 EA TAB PO PRN ×4 (06:24→23:00)
[2017-09-08] MEDS: INSULIN REGULAR, HUMAN 100 UNIT/1 ML 3ML VIAL SQ SCH ×4 (07:30→21:30)
[2017-09-08 08:00] VITALS: BP 127/91
[2017-09-08] MEDS: GLIMEPIRIDE 2 MG TAB PO SCH ×2 (09:34→17:41)
[2017-09-08] MEDS: FUROSEMIDE 20 MG TAB PO SCH (09:34)
[2017-09-08] MEDS: PRASUGREL 10 MG TAB PO SCH (09:34)
[2017-09-08] MEDS: GABAPENTIN 300 MG CAP PO SCH ×2 (09:34→17:41)
[2017-09-08] MEDS: METOPROLOL SUCCINATE 25 MG TAB XL PO SCH (09:34)
[2017-09-08] MEDS: CILOSTAZOL 100 MG TAB PO SCH ×2 (09:34→17:41)
[2017-09-08] MEDS: LISINOPRIL 2.5 MG TAB PO SCH (09:34)
[2017-09-08] MEDS: CYCLOBENZAPRINE HCL 10 MG TAB PO SCH ×3 (09:34→21:46)
[2017-09-08] MEDS: ASPIRIN 81 MG CHEW TAB PO SCH (09:34)
[2017-09-08] MEDS: POTASSIUM CHLORIDE 10 MEQ TABCR PO SCH (09:37)
[2017-09-08 12:00] VITALS: BP 114/86
[2017-09-08 16:00] VITALS: BP 106/73
[2017-09-08] MEDS: ENOXAPARIN SOD INJ 40 MG/0.4 ML SYR SC SCH (17:41)
--- NOTE | 2017-09-08 19:14 | Progress Note ---
DATE: September 08, 2017 CARDIOLOGY PROGRESS NOTE SUBJECTIVE: The patient denies chest pain or shortness of breath. He is having bleeding from his TMA. OBJECTIVE VITAL SIGNS: Temperature 98.6 degrees, pulse 85, respiratory rate 19, blood pressure 114/86, oxygen saturation 100% on room air. GENERAL: Awake, alert, and in no acute distress. LUNGS: Clear to auscultation bilaterally. No wheezes or crackles. CARDIOVASCULAR: Normal rate, regular rhythm. No murmurs. Normal S1 and S2. ABDOMEN: Soft and nontender. EXTREMITIES: Status post left TMA with bleeding noted on the dressing. CARDIAC MEDICATIONS: 1. Enoxaparin 40 mg subcu daily. 2. 50 mg p.o. b.i.d. 3. Atorvastatin 40 mg p.o. nightly. 4. 10 mg p.o. daily. 5. Metoprolol succinate 25 mg p.o. daily. 6. Lisinopril 2.5 mg p.o. daily. 7. Furosemide 20 mg p.o. daily. 8. Aspirin 81 mg p.o. daily. LABORATORY DATA: WBC 8.7, hemoglobin 11.6, hematocrit 35.1, platelets 394,000, sodium 137, potassium 3.8, chloride 102, CO2 of 27, BUN 13, creatinine 1.11. IMPRESSION 1. Peripheral arterial disease with critical limb ischemia, status post left superficial femoral artery and popliteal artery drug-eluting balloon angioplasty with poor residual outflow and small vessel disease. 2. Left foot abscess, status post transmetatarsal amputation as well as incision and drainage. 3. Diabetes mellitus. 4. Dyslipidemia. RECOMMENDATIONS: Continue current cardiac medications including dual antiplatelet therapy. He remains at risk for poor wound healing due to small vessel disease that is not amenable to intervention. Management of TMA per podiatry. Thank you for this consult. We will continue to follow. Job#: [id number]
[2017-09-08 20:00] VITALS: BP 107/73
[2017-09-08] MEDS: ATORVASTATIN 40 MG TAB PO SCH (21:46)
[2017-09-09] VITALS: BP 118/74
[2017-09-09] MEDS: PIPER-TAZ 3.375 GM 50 ML IV SCH ×4 (00:03→17:00)
[2017-09-09] MEDS: HYDROCODONE/APAP 7.5MG-325MG 1 EA TAB PO PRN ×4 (00:03→17:03)
[2017-09-09 03:53] LABS: BASOPHILS # (AUTO) 0.1 (0.0-0.1); BASOPHILS % 0.9 % (0.0-1.0); EOSINOPHILS # (AUTO) 0.4 (0.0-0.4); EOSINOPHILS % 5.8 % (0.0-6.0); HEMATOCRIT 34.7 % (38.2-49.6); HEMOGLOBIN 11.4 g/dL (14.0-18.0); LYMPHOCYTES # (AUTO) 2.7 (1.0-3.2); LYMPHOCYTES % 36.7 % (18.0-39.1); MEAN CORPUSCULAR HEMOGLOBIN 29.5 pg (28-32); MEAN CORPUSCULAR HGB CONC 32.9 g/dL (31-35); MEAN CORPUSCULAR VOLUME 89.9 fL (81-99); MONOCYTES # (AUTO) 0.6 (0.2-0.8); MONOCYTES % 7.5 % (4.4-11.3); NEUTROPHILS # (AUTO) 3.6 (2.1-6.9); NEUTROPHILS % 48.6 % (38.7-80.0); PLATELET COUNT 322 x10e3/uL (140-360); RED BLOOD COUNT 3.86 x10e6/uL (4.3-5.7); RED CELL DISTRIBUTION WIDTH 12.5 % (11.7-14.4)
[2017-09-09] MEDS: VANCOMYCIN 1GM/NS 250 ML 250 ML IV SCH ×2 (03:55→15:47)
[2017-09-09 04:00] VITALS: BP 118/78
[2017-09-09 04:05] LABS: ANION GAP 13.8 mmol/L (8-16); BLOOD UREA NITROGEN 14 mg/dL (7-26); BUN/CREATININE RATIO 13 (6-25); CALCIUM 9.4 mg/dL (8.4-10.2); CARBON DIOXIDE 26 mmol/L (22-29); CHLORIDE 102 mmol/L (98-107); EST GLOMERULAR FILTRATION RATE > 60 ML/MIN (60-); GLUCOSE 122 mg/dL (74-118); POTASSIUM 3.8 mmol/L (3.5-5.1); SODIUM 138 mmol/L (136-145)
[2017-09-09] MEDS: INSULIN REGULAR, HUMAN 100 UNIT/1 ML 3ML VIAL SQ SCH ×3 (07:30→16:30)
[2017-09-09] MEDS: ASPIRIN 81 MG CHEW TAB PO SCH (08:29)
[2017-09-09] MEDS: CILOSTAZOL 100 MG TAB PO SCH ×2 (08:29→16:58)
[2017-09-09] MEDS: FUROSEMIDE 20 MG TAB PO SCH (08:29)
[2017-09-09] MEDS: PRASUGREL 10 MG TAB PO SCH (08:29)
[2017-09-09] MEDS: GLIMEPIRIDE 2 MG TAB PO SCH (08:29)
[2017-09-09] MEDS: CYCLOBENZAPRINE HCL 10 MG TAB PO SCH ×2 (08:29→15:52)
[2017-09-09] MEDS: GABAPENTIN 300 MG CAP PO SCH ×2 (08:29→16:58)
[2017-09-09] MEDS: POTASSIUM CHLORIDE 10 MEQ TABCR PO SCH (08:30)
[2017-09-09] MEDS: LISINOPRIL 2.5 MG TAB PO SCH (08:30)
[2017-09-09] MEDS: METOPROLOL SUCCINATE 25 MG TAB XL PO SCH (08:30)
[2017-09-09 08:57] VITALS: BP 149/89
--- NOTE | 2017-09-09 09:31 | Progress Note ---
DATE: September 09, 2017 SUBJECTIVE: Patient seen at bedside. Denies any history of fever, chills, nausea, vomiting. OBJECTIVE: VITAL SIGNS: Afebrile. Vital signs stable. EXTREMITIES: Incision of flap was inspected, viable. Skin temperature warm to touch. There was bloody strikethrough. ASSESSMENT: Doing well, status post transmetatarsal amputation, incision and drainage with flap closure. PLAN: Will get his last dose of IV antibiotics before he goes home. Prescription for Keflex and Trental were given. Patient is to remain nonweightbearing with the aid of the knee walker. Follow up in the office by the end of the week. Strict nonweightbearing. Job#: [id number]
[2017-09-09 12:28] VITALS: BP 127/97
[2017-09-09] MEDS ORDERED: KEFLEX500 MG PO (14:33)
[2017-09-09] MEDS ORDERED: PENTOXIFYLLINE400 MG PO (14:34)
[2017-09-09] MEDS ORDERED: EFFIENT10 MG PO (14:38)
[2017-09-09 15:53] VITALS: BP 121/77
[2017-09-09] MEDS: ENOXAPARIN SOD INJ 40 MG/0.4 ML SYR SC SCH (16:58)
[2017-09-09] MEDS ORDERED: GLIMEPIRIDE 2 MG TAB PO SCH (17:00)
[2017-09-09] MEDS ORDERED: NORCO 10-325 T1 EACH PO (18:04)
--- NOTE | 2017-09-09 18:04 | Progress Note ---
DATE: September 09, 2017 CARDIOLOGY PROGRESS NOTE SUBJECTIVE: The patient denies chest pain or shortness of breath. OBJECTIVE VITAL SIGNS: Temperature 97.4 degrees, pulse 85, respiratory rate 18, blood pressure 127/97, oxygen saturation 94% on room air. GENERAL: Awake, alert, in no acute distress. LUNGS: Clear to auscultation bilaterally. No wheezes or crackles. CARDIOVASCULAR: Normal rate, regular rhythm. No murmur. Normal S1 and S2. ABDOMEN: Soft, nontender. EXTREMITIES: Status post left TMA with dressing intact. CARDIAC MEDICATIONS 1. Enoxaparin 40 mg subcutaneous daily. 2. Cilostazol 50 mg p.o. b.i.d. 3. Metoprolol succinate 25 mg p.o. daily. 4. Lisinopril 2.5 mg p.o. daily. 5. Prasugrel 10 mg p.o. daily. 6. Furosemide 20 mg p.o. daily. 7. Aspirin 81 mg p.o. daily. 8. Atorvastatin 40 mg p.o. nightly. LABS: WBC 7.4, hemoglobin 11.4, hematocrit 34.7, platelets 322. Sodium 138, potassium 3.8, chloride 102, CO2 26, BUN 14, creatinine 1.1. IMPRESSION 1. Peripheral arterial disease with critical limb ischemia status post left superficial femoral artery and popliteal artery drug-eluting balloon angioplasty with poor residual outflow and small-vessel disease. 2. Left foot abscess status post transmetatarsal amputation and drainage. 3. Diabetes mellitus. 4. Dyslipidemia. RECOMMENDATIONS: Continue current cardiac medications including dual antiplatelet therapy. He remains at risk for poor wound healing due to small-vessel disease that is not amenable to intervention. Management of TMA per Podiatry. Thank you for this consult. We will continue to follow. Job#: [id number]
--- NOTE | 2017-09-09 21:35 | Discharge Summary ---
ADMISSION DIAGNOSES: 1. Left leg fifth toe with dry gangrene. 2. Left second toe with dry gangrene. 3. Neuropathy. 4. Diabetes type 2. 5. Hypertension. 6. Peripheral vascular disease. DISCHARGE DIAGNOSES: 1. Left leg fifth toe with dry gangrene. 2. Left second toe with dry gangrene. 3. Neuropathy. 4. Diabetes type 2. 5. Hypertension. 6. Peripheral vascular disease. 7. Left transmetatarsal amputation with flap. HISTORY: Patient has a history of diabetes type 2, hypertension, PVD, and smoking. He claims to have stopped smoking about 2 days ago. He used to smoke 3/4 a pack for 2 years. Denies any other alcohol, recreational drugs. HOSPITAL COURSE: Nasdf-govve-felc-old male presents complaining of left leg pain with fifth toe dry gangrene and second toe dry gangrene. The patient reported some neuropathy to the left leg. He had a previous amputation to the right great toe as well as with second right toe due to a fracture versus osteomyelitis several years ago. Patient stated that he was seen at [facility] about 3 weeks ago, had a Doppler done of the left leg and then was discharged from the emergency room. Dr. Perez, podiatry was consulted. Patient was started on IV antibiotics of Zosyn and vancomycin, and pain controlled. On the , Dr. Perez did a I and D of abscess to the left foot and a transmetatarsal amputation of the left foot with a flap closure of the left foot. Patient tolerated well. Dr. Perez then wanted to consult cardiology for possible angioplasty. Cardiology went ahead with an angioplasty and had a successful revascularization with drug-eluting balloon of the left distal superficial femoral artery and proximal to mid popliteal artery in the area of prior stent occlusion, follow residual [id number] dissection in the left popliteal artery. Cardiac recommended to continue aspirin daily and Effient daily. Wound care continued. Per Dr. Perez, patient is to be strict nonweightbearing on that leg. Because patient was self paid, he was unable to go to another facility as he only wanted to go home. Patient had his family bring him a walker up to his room prior to discharge. Per Dr. Perez, patient is okay to discharge home and followup by the end of the week. He was sent home on Keflex and Trental. Per cardiology, patient is okay to discharge home on dual antiplatelet therapy. At time of discharge, WBC was 7.42, hemoglobin 11.4, hematocrit 34.7. Sodium 138, potassium 3.8, calcium 9.4, BUN of 14, creatinine of 1.1, GFR of over 60. Vital signs stable. No sign of bleeding or infection of the amputation site. Pain is very minimal. Patient was sent home on medications per cardiology and podiatry plus pain medicines. He will otherwise resume home medicines. Patient is to follow up with Dr. Perez by the end of the week and primary care in 1 to 2 weeks. Dictated by Jacquelin Nicholson NP RAEANN GARAY MD Job#: [id number]
== END 2017-09-09 18:20 | disposition home or self-care (01) | DRG 240 ==
LOC: ER 10:25 → ERHOLD 15:41 → MED/SURG3 18:16
PROVIDERS: ADMIT Internal Medicine; ATTEND Internal Medicine
PROC: 0Y6N0ZB Detachment at Left Foot, Partial 2nd Ray, Open Approach (ICD-10-PCS; 2017-09-04)
PROC: 0Y6N0ZC Detachment at Left Foot, Partial 3rd Ray, Open Approach (ICD-10-PCS; 2017-09-04)
PROC: 0Y6N0ZD Detachment at Left Foot, Partial 4th Ray, Open Approach (ICD-10-PCS; 2017-09-04)
PROC: 0Y6N0ZF Detachment at Left Foot, Partial 5th Ray, Open Approach (ICD-10-PCS; 2017-09-04)
PROC: 0HXNXZZ Transfer Left Foot Skin, External Approach (ICD-10-PCS; 2017-09-04)
PROC: 0Y6N0Z9 Detachment at Left Foot, Partial 1st Ray, Open Approach (ICD-10-PCS; principal; 2017-09-04 07:30)
PROC: 047L3Z1 Dilation of Left Femoral Artery using Drug-Coated Balloon, Percutaneous Approach (ICD-10-PCS; 2017-09-05)
PROC: 047N3Z1 Dilation of Left Popliteal Artery using Drug-Coated Balloon, Percutaneous Approach (ICD-10-PCS; 2017-09-05)
PROC: B41D1ZZ Fluoroscopy of Aorta and Bilateral Lower Extremity Arteries using Low Osmolar Contrast (ICD-10-PCS; 2017-09-05)
DX: I70.262 Atherosclerosis of native arteries of extremities with gangrene, left leg (principal); L02.612 Cutaneous abscess of left foot; E11.40 Type 2 diabetes mellitus with diabetic neuropathy, unspecified; E11.52 Type 2 diabetes mellitus with diabetic peripheral angiopathy with gangrene; I70.201 Unspecified atherosclerosis of native arteries of extremities, right leg; E78.5 Hyperlipidemia, unspecified; I25.10 Atherosclerotic heart disease of native coronary artery without angina pectoris; F17.200 Nicotine dependence, unspecified, uncomplicated; I10 Essential (primary) hypertension; E11.65 Type 2 diabetes mellitus with hyperglycemia; Z95.820 Peripheral vascular angioplasty status with implants and grafts; Z79.82 Long term (current) use of aspirin; Z89.411 Acquired absence of right great toe; Z89.422 Acquired absence of other left toe(s); Z89.421 Acquired absence of other right toe(s); Z79.84 Long term (current) use of oral hypoglycemic drugs
CPT/HCPCS: 36140; 36415; 37224; 71010; 75630; 75710; 77002; 80048; 80053; 80061; 80202; 82948; 85025; 85610; 85730; 88305; 88307; 88311; 93005; 93925; 96367; 96372; 99284; C1769; C2623; J0360; J0720; J1100; J1644; J1650; J2001; J2250; J2270; J2405; J2543; J3370; J7030; J7050; Q9967